=== PATIENT | male | born 1985 | race American Indian/Alaskan Native ===

== ENCOUNTER 2017-10-16 18:01 | Emergency (ER) | payer OTHER ==
[2017-10-16 18:56] VITALS: BP 137/94
== END 2017-10-17 02:45 | disposition left against medical advice (07) ==
LOC: ED 18:01
DX: M54.5 Low back pain (principal); V49.29XA Unspecified car occupant injured in collision with other motor vehicles in nontraffic accident, initial encounter; Y93.89 Activity, other specified; Y92.488 Other paved roadways as the place of occurrence of the external cause; Y99.8 Other external cause status; Z53.21 Procedure and treatment not carried out due to patient leaving prior to being seen by health care provider